=== PATIENT | male | born 1945 | race Caucasian/White ===

== ENCOUNTER 2023-01-11 07:09 | Day surgery (SDC) | payer MEDICARE ==
[2023-01-10 12:17] VITALS: BMI 30.8
[2023-01-11] MEDS ORDERED: Mupirocin 2% Ointment 22 GM Tube ONE (13:06)
[2023-01-11] MEDS ORDERED: Lidocaine 1% w/Epinephrine 1:100K 20 ML VIAL ONE (13:06)
[2023-01-11] MEDS ORDERED: Isosulfan Blue 50 MG/5 ML VIAL ONE (13:06)
[2023-01-11] MEDS ORDERED: CEFAZOLIN 1 GM VIAL ONE (13:06)
[2023-01-11 13:29] LABS: Anion Gap 15 mmol/L (10-20); BUN (Urea Nitrogen) 28 mg/dL (8.4-25.7); Calc. Creatinine Clearance 48 mL/min (70-130); Calcium 9.3 mg/dL (7.8-10.44); Carbon Dioxide 22 mmol/L (23-31); Chloride 109 mmol/L (98-107); Estimated GFR 39; Glucose 96 mg/dL (83-110); Potassium 4.3 mmol/L (3.5-5.1); Sodium 142 mmol/L (136-145)
== END 2023-01-11 17:10 | disposition home or self-care (01) ==
LOC: CSHNM 07:09
PROVIDERS: ATTEND Otolaryngology Plastic Surgery within the Head & Neck
PROC: 0HB1XZZ Excision of Face Skin, External Approach (ICD-10-PCS; principal; 2023-01-11)
PROC: 07B20ZX Excision of Left Neck Lymphatic, Open Approach, Diagnostic (ICD-10-PCS; 2023-01-11)
PROC: 0HR Skin and Breast, Replacement (ICD-10-PCS; 2023-01-11)
DX: D03.39 Melanoma in situ of other parts of face (principal); C44.319 Basal cell carcinoma of skin of other parts of face; I10 Essential (primary) hypertension; E11.9 Type 2 diabetes mellitus without complications; Z79.82 Long term (current) use of aspirin; Z79.899 Other long term (current) drug therapy; Z79.84 Long term (current) use of oral hypoglycemic drugs; Z90.49 Acquired absence of other specified parts of digestive tract
CPT/HCPCS: 11646; 15240; 15241; 38500; 78195; 80048; A9541; Q9968; 88305; 88307; 88342; J0690